=== PATIENT | male | born 1940 | race Caucasian/White ===

== ENCOUNTER → 2016-06-05 | Outpatient (CLI) | payer MEDICARE, OTHER ==
[~2016-06-05] MED LIST: /GLYB5TA; FLEXERIL; GLIP10TA6 PO; GLUC1000; INSULADS INJ; LASI40TA PO; LISI-542 PO; METO25TA74 PO; NEUR100C; OMEP20TA7; PREVASTAIN PO; STAR120T3 PO; TERAZOSIN; VERA180C3; [UNRECOGNIZED DRUG - OTHER]
[2016-06-05 07:14] LABS: MEAN CORPUSCULAR HEMOGLOBIN 31.8 pg (27.0-33.0); MEAN CORPUSCULAR HGB CONC 34.8 g/dl (32.0-36.5); MEAN CORPUSCULAR VOLUME 91.6 fl (80.0-96.0); RED CELL DISTRIBUTION WIDTH 13.7 % (11.5-14.5)
[2016-06-05 07:44] LABS: ALBUMIN 3.8 GM/DL (3.2-5.2); ALBUMIN/GLOBULIN RATIO 1.03 (1.00-1.93); BILIRUBIN,TOTAL 0.4 MG/DL (0.2-1.0); CALCIUM LEVEL 9.1 MG/DL (8.8-10.2); CREATININE FOR GFR 1.3 MG/DL (0.70-1.30); GLOMERULAR FILTRATION RATE 57.4 (>42); POTASSIUM SERUM 4.8 MEQ/L (3.5-5.1); TOTAL PROTEIN 7.5 GM/DL (6.4-8.2)
--- NOTE | 2016-06-05 08:29 | REP ---
CHEST X-RAY: TWO VIEWS. History: Hypertension. Comparison study October 23, 2015. Findings: The lungs are symmetrically aerated and clear. The aorta is calcific. Heart size is normal. Pulmonary vasculature is not increased. There are some degenerative changes in the thoracic spine and in the right shoulder. Impression: No active disease. Signed by Deep Lucero MD 06/05/2016 01:40 P
--- NOTE | 2016-06-05 09:58 | ECGEPIP ---
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
== END ==
LOC: M LAB 06:32
PROVIDERS: ATTEND Family Medicine
DX: Z01.818 Encounter for other preprocedural examination (principal); H26.9 Unspecified cataract; H40.9 Unspecified glaucoma; I10 Essential (primary) hypertension; E11.9 Type 2 diabetes mellitus without complications

== ENCOUNTER → 2016-06-24 | Day surgery (SDC) | payer MEDICARE, OTHER ==
[~2016-06-24] VITALS: Ht 177.8 cm; Wt 117.9 kg
[~2016-06-24] MED LIST changes: +ACETAMINOPHEN 325 MG TAB PO PRN; +ACETYLCHOLINE OPHTH SOLN 1% 2ML As Ordered ONE; +AcetaZOLAMIDE 500 MG ER CAP PO ONE; +BSS with VANC/TOB/EPI for EYE CASES IR ONE; +CEFUROXIME 1MG/0.1ML INTRACAMERAL INJ As Ordered ONE; +CEFUROXIME INJ 1.5 GM VIAL (J0697) XX ONE; +CYCLOPENTOLATE 2% OPHTH SOLN OD ONE; +HEALON DUET (HEALON 10MG/ML 0.55ML & HEALON ENDOCOAT 30MG/ML 0.85ML) As Ordered ONE; +HEALON DUET (HEALON 10MG/ML 0.55ML & HEALON ENDOCOAT 30MG/ML 0.85ML) XX ONE; +KETOROLAC 0.5% OPHTH SOLN OD ONE; +LIDOCAINE 1% SDV 5 ML VIAL As Ordered ONE; +LIDOCAINE 1% SDV 5 ML VIAL XX ONE; +LIDOCAINE 4% INJ 5 ML AMP OU ONE; +MIDAZOLAM INJ 2 MG/2 ML VIAL (J2250) As Ordered ONE; +OFLOXACIN 0.3 % (OCUFLOX) OPTH SOL 5ML OD ONE; +PHENYLEPHRINE 2.5% OPHTH SOL 2ML OD ONE; +POVIDONE-IODINE 5% OPHTH PREP SOL 30ML As Ordered ONE; +PROPARACAINE 0.5% OPHTH SOL 15ML OD PRN; +TRIMETHOBENZAMIDE 300 MG CAP PO PRN; +TROPICAMIDE 1% OPHTH SOLN 2 ML OD ONE; +fentaNYL 100 MCG/2 ML INJECTION (J3010) As Ordered ONE
[2016-06-24 10:00] VITALS: BP 150/69
--- NOTE | 2016-06-24 11:10 | RO ---
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 PROCEDURE: Phacoemulsification with intraocular lens implantation of PCB00 power 15.5 diopters and endocyclophotocoagulation right eye, along with placement of the iStent right eye. SURGEON: Dr. Sary Tabor FURNITURE BUILDER: COMPLICATIONS: None. DESCRIPTION OF PROCEDURE: Procedure in detail: The patient was brought to the operating room and laid in supine position. The right eye was prepped and draped in a sterile fashion for ophthalmic solution, and a lid speculum was placed. A sideport incision was made, and EndoCoat was injected into the anterior chamber. A temporal clear corneal incision was made with a 2.5 mm keratome, followed by capsulorrhexis. Hydrodissection was done, followed by phacoemulsification in a [id number] method. Corticol material was then aspirated using irrigation aspiration cannula, followed by placement of Healon in the capsular bag and placement of the intraocular lens. Healon was then placed in the ciliary sulcus to visualize the ciliary process on the video screen with the help of the EndoProbe, and endocyclophotocoagulation was done for 280 degrees at 0.25 mW. Good results were noted, as by shrinkage of the ciliary processes. The patient was very agitated during this process in spite of adequate anesthesia. Following this, the patient's head was turned away from the surgeon. Microscope was turned towards the surgeon. EndoCoat was injected into the anterior chamber to visualize the infranasal trabecular meshwork; and under high mag with the help of the Goniolens over Healon, the iStent was placed in the infranasal quadrant. The patient continued to move quite aggressively. However, good blood reflux was noted while placing the iStent. Exact positioning was sort of blurred because of the blood reflux. Excess viscoelastic was aspirated. Some heme was aspirated, as well. The anterior chamber was relatively cleared at the end of the aspiration of the Healon. The wound was hydrated. No leaks were noted. Lid speculum removed. The patient returned to the recovery room in stable condition.
== END | disposition home or self-care (01) ==
LOC: M SDC 06:14
PROVIDERS: ATTEND Ophthalmology
DX: H26.9 Unspecified cataract (principal); H40.9 Unspecified glaucoma; I10 Essential (primary) hypertension; I25.2 Old myocardial infarction; E11.9 Type 2 diabetes mellitus without complications; E78.00 Pure hypercholesterolemia, unspecified; K21.9 Gastro-esophageal reflux disease without esophagitis; M17.0 Bilateral primary osteoarthritis of knee; M16.12 Unilateral primary osteoarthritis, left hip; F17.210 Nicotine dependence, cigarettes, uncomplicated; Z79.899 Other long term (current) drug therapy; Z79.4 Long term (current) use of insulin; Z79.84 Long term (current) use of oral hypoglycemic drugs
CPT/HCPCS: 66183; 66711; 66984; C1783; J0697; J2250; J3010; V2632

== ENCOUNTER → 2016-07-22 | Day surgery (SDC) | payer MEDICARE, OTHER ==
[~2016-07-22] VITALS: Ht 177.8 cm; Wt 117.0 kg
[~2016-07-22] MED LIST changes: -ACETYLCHOLINE OPHTH SOLN 1% 2ML As Ordered ONE; -AcetaZOLAMIDE 500 MG ER CAP PO ONE; +BIMA01SOL OS; -CEFUROXIME INJ 1.5 GM VIAL (J0697) XX ONE; -CYCLOPENTOLATE 2% OPHTH SOLN OD ONE; +CYCLOPENTOLATE 2% OPHTH SOLN XX ONE; +D5W/0.2% SODIUM CHLORIDE 250 ML IV SCH; +HumaLOG INSULIN (NovoLOG) PER UNIT As Ordered ONE; +HumaLOG INSULIN (NovoLOG) PER UNIT SC ONE; -KETOROLAC 0.5% OPHTH SOLN OD ONE; +KETOROLAC 0.5% OPHTH SOLN OS ONE; +LIDOCAINE W/EPINEPHRINE 1% 20ML VIAL XX ONE; +METF1000 PO; +METF500T PO; +MOXIFLOXACIN IN BSS 0.25MG/0.25ML INTRACAMERAL INJ (OR EYE ONLY)(J2280) As Ordered ONE; +MOXIFLOXACIN IN BSS 0.25MG/0.25ML INTRACAMERAL INJ (OR EYE ONLY)(J2280) ICAM ONE; -OFLOXACIN 0.3 % (OCUFLOX) OPTH SOL 5ML OD ONE; -PHENYLEPHRINE 2.5% OPHTH SOL 2ML OD ONE; +PHENYLEPHRINE 2.5% OPHTH SOL 2ML XX ONE; -PROPARACAINE 0.5% OPHTH SOL 15ML OD PRN; +PROPARACAINE 0.5% OPHTH SOL 15ML OS PRN; -TERAZOSIN; +TERAZOSIN PO; +TRIAMCINOLONE PRES FR 40 MG/ML 1ML(TRIESENCE)(OR EYE ONLY)(J3300 PER 1MG) IO ONE; -TROPICAMIDE 1% OPHTH SOLN 2 ML OD ONE; +TROPICAMIDE 1% OPHTH SOLN 2 ML XX ONE
[2016-07-22] MEDS: OFLOXACIN 0.3 % (OCUFLOX) OPTH SOL 5ML XX ONE ×2 (11:00→11:15)
[2016-07-22 13:20] VITALS: BP 130/74
--- NOTE | 2016-07-22 13:48 | RO ---
DATE OF PROCEDURE: 07/22/2016 PREPROCEDURE DIAGNOSES: Cataract and glaucoma left eye. POSTPROCEDURE DIAGNOSES: Cataract and glaucoma left eye. SURGEON: Sary Tabor MD CUSTOMER SUPPORT ANALYST: None. COMPLICATIONS: None. PROCEDURE: Phacoemulsification with intraocular lens implantation of PCB 00, power 15 diopter and endocytophotocoagulation left eye and placement of the Glaukos I-Stent, reference number [id number], also in the left eye. DESCRIPTION OF PROCEDURE: The patient was brought to the operating room and laid in supine position. The eye was prepped and draped in the sterile fashion for ophthalmic surgery, and a lid speculum was placed. A sideport incision was made and EndoCoat was injected into the anterior chamber. Temporal clear corneal incision was made with a 2.5 mm keratome and capsulorrhexis was done. Hydrodissection was then done, followed by phacoemulsification in divide and conquer method within the capsular bag. Cortical material was then aspirated using irrigation and aspiration cannula. Healon was then placed into the capsular bag. Intraocular lens was placed in the bag. Healon was then placed in the ciliary sulcus to visualize the ciliary process with the head of the EndoProbe. Endocytophotocoagulation was done about 220 degrees because of excessive facial movement at 0.25 mw with good results noticed by shrinking of the ciliary processes. Healon was then placed into the anterior chamber to visualize the infranasal trabecular meshwork under the microscope under high magnification and with the help of the Gonial lens. The I-Stent was placed in the infranasal quadrant without any complications. Excess viscoelastic was then aspirated. Wound was hydrated. Intracameral antibiotic of moxifloxacin was given. The patient was returned to the recovery room in stable condition.
== END | disposition home or self-care (01) ==
LOC: M SDC 10:28
PROVIDERS: ATTEND Ophthalmology
DX: H26.9 Unspecified cataract (principal); H40.9 Unspecified glaucoma; I10 Essential (primary) hypertension; E11.9 Type 2 diabetes mellitus without complications; E78.5 Hyperlipidemia, unspecified; M19.90 Unspecified osteoarthritis, unspecified site; M54.5 Low back pain; F17.210 Nicotine dependence, cigarettes, uncomplicated; Z79.899 Other long term (current) drug therapy; Z79.84 Long term (current) use of oral hypoglycemic drugs; Z79.4 Long term (current) use of insulin
CPT/HCPCS: 66183; 66711; 66984; C1783; J2250; J2280; J3010; J3300; V2632

== ENCOUNTER → 2017-10-13 | Outpatient (CLI) | payer MEDICARE, OTHER ==
[2017-10-13 16:16] LABS: SOURCE, BODY FLUID GLUCOSE PLEURAL; SOURCE, BODY FLUID TOT PROTEIN PLEURAL; TOTAL PROTEIN, BODY FLUID 5.4 G/DL (NOT ESTABLISHED)
== END ==
LOC: M RADPRO 12:57
DX: J90 Pleural effusion, not elsewhere classified (principal)
CPT/HCPCS: 32555

== ENCOUNTER → 2020-08-13 | Outpatient (REF) | payer MEDICARE, OTHER ==
[~2020-08-13] MED LIST changes: -/GLYB5TA; -ACETAMINOPHEN 325 MG TAB PO PRN; -BSS with VANC/TOB/EPI for EYE CASES IR ONE; -CEFUROXIME 1MG/0.1ML INTRACAMERAL INJ As Ordered ONE; -CYCLOPENTOLATE 2% OPHTH SOLN XX ONE; -D5W/0.2% SODIUM CHLORIDE 250 ML IV SCH; +GLYB1TAB29; -HEALON DUET (HEALON 10MG/ML 0.55ML & HEALON ENDOCOAT 30MG/ML 0.85ML) As Ordered ONE; -HEALON DUET (HEALON 10MG/ML 0.55ML & HEALON ENDOCOAT 30MG/ML 0.85ML) XX ONE; -HumaLOG INSULIN (NovoLOG) PER UNIT As Ordered ONE; -HumaLOG INSULIN (NovoLOG) PER UNIT SC ONE; -KETOROLAC 0.5% OPHTH SOLN OS ONE; -LASI40TA PO; +LASI40TA9 PO; -LIDOCAINE 1% SDV 5 ML VIAL As Ordered ONE; -LIDOCAINE 1% SDV 5 ML VIAL XX ONE; -LIDOCAINE 4% INJ 5 ML AMP OU ONE; -LIDOCAINE W/EPINEPHRINE 1% 20ML VIAL XX ONE; -LISI-542 PO; +LISI-898 PO; -METF1000 PO; +METF10004 PO; -METF500T PO; +METF500T13 PO; +METO1TAB32 PO; -METO25TA74 PO; -MIDAZOLAM INJ 2 MG/2 ML VIAL (J2250) As Ordered ONE; -MOXIFLOXACIN IN BSS 0.25MG/0.25ML INTRACAMERAL INJ (OR EYE ONLY)(J2280) As Ordered ONE; -MOXIFLOXACIN IN BSS 0.25MG/0.25ML INTRACAMERAL INJ (OR EYE ONLY)(J2280) ICAM ONE; -PHENYLEPHRINE 2.5% OPHTH SOL 2ML XX ONE; -POVIDONE-IODINE 5% OPHTH PREP SOL 30ML As Ordered ONE; -PROPARACAINE 0.5% OPHTH SOL 15ML OS PRN; -TRIAMCINOLONE PRES FR 40 MG/ML 1ML(TRIESENCE)(OR EYE ONLY)(J3300 PER 1MG) IO ONE; -TRIMETHOBENZAMIDE 300 MG CAP PO PRN; -TROPICAMIDE 1% OPHTH SOLN 2 ML XX ONE; -fentaNYL 100 MCG/2 ML INJECTION (J3010) As Ordered ONE
== END ==
LOC: M LAB REF 12:17
PROVIDERS: ATTEND Surgery
DX: M86.172 Other acute osteomyelitis, left ankle and foot (principal); E11.621 Type 2 diabetes mellitus with foot ulcer; L97.402 Non-pressure chronic ulcer of unspecified heel and midfoot with fat layer exposed; L97.504 Non-pressure chronic ulcer of other part of unspecified foot with necrosis of bone
CPT/HCPCS: 11042; 11044; 87070; 87077; 87186; 88304; 88311; G0463

== ENCOUNTER → 2020-10-09 | Outpatient (REF) | payer MEDICARE, OTHER | LOC: M LAB REF 16:14 | PROVIDERS: ATTEND Physician Assistant | DX: L97.504 Non-pressure chronic ulcer of other part of unspecified foot with necrosis of bone (principal) ==

== ENCOUNTER → 2021-06-17 | Outpatient (REF) | payer MEDICARE, OTHER ==
[~2021-06-17] MED LIST changes: -LISI-898 PO; +LISI5TAB11 PO
== END ==
LOC: M LAB REF 15:46
PROVIDERS: ATTEND Surgery
DX: L97.524 Non-pressure chronic ulcer of other part of left foot with necrosis of bone (principal)

== ENCOUNTER → 2023-07-15 | Outpatient (REF) | payer MEDICARE, OTHER | LOC: M SFHCWOUN 16:35 | PROVIDERS: ATTEND Surgery | DX: L97.812 Non-pressure chronic ulcer of other part of right lower leg with fat layer exposed (principal) ==

== ENCOUNTER 2023-11-18 15:21 | Emergency (ER) | payer MEDICARE, OTHER ==
[~2023-11-18] VITALS: Ht 177.8 cm; Wt 121.1 kg
[2023-11-18 16:11] LABS: BASO % 0.3 % (0.0-1.0); EOS # 0.6 10^3/uL (0.0-0.5); EOS % 7.6 % (0.0-3.0); HEMATOCRIT 27.7 % (42.0-52.0); HEMOGLOBIN 8.2 g/dl (13.5-17.5); LYMPH # 1.5 10^3/uL (1.5-5.0); LYMPH % 20.4 % (24.0-44.0); MEAN CORPUSCULAR HEMOGLOBIN 29.3 pg (27.0-33.0); MEAN CORPUSCULAR HGB CONC 29.6 g/dl (32.0-36.5); MEAN CORPUSCULAR VOLUME 98.9 fl (80.0-96.0); MONO # 0.5 10^3/uL (0.0-0.8); MONO % 7.2 % (2.0-8.0); NEUTROPHILS # 4.8 10^3/uL (1.5-8.5); NEUTROPHILS % 64.2 % (36.0-66.0); PLATELET COUNT, AUTOMATED 207 10^3/uL (150-450); WHITE BLOOD COUNT 7.4 10^3/uL (4.0-10.0)
[2023-11-18 16:17] LABS: ALBUMIN 2.4 G/DL (3.2-5.2); ALKALINE PHOSPHATASE 133 U/L (46-116); ALT/SGPT 22 U/L (7.0-40); AST/SGOT 12 U/L (<34); BILIRUBIN,DIRECT < 0.1 MG/DL (<0.4); BILIRUBIN,TOTAL 0.2 MG/DL (0.3-1.2); BLOOD UREA NITROGEN 65 MG/DL (9-23); CALCIUM LEVEL 10.7 MG/DL (8.3-10.6); CARBON DIOXIDE LEVEL 32 MMOL/L (20-31); CHLORIDE LEVEL 106 MMOL/L (98-107); CREATININE FOR GFR 2.11 MG/DL (0.70-1.30); GLOMERULAR FILTRATION RATE 32.2 (>35); GLUCOSE, FASTING 201 MG/DL (74-106); POTASSIUM SERUM 3.8 MMOL/L (3.5-5.1); SODIUM LEVEL 142 MMOL/L (136-145); TOTAL PROTEIN 6.6 G/DL (5.7-8.2)
[2023-11-18 16:19] LABS: THYROID STIMULATING HORMONE 1.824 uIU/ML (0.55-4.78); THYROXINE (T4) 4.7 UG/DL (4.5-10.9)
[2023-11-18] MEDS ORDERED: ELIQ5TAB PO (17:04)
[2023-11-18] MEDS ORDERED: ASCO500T PO (17:04)
[2023-11-18] MEDS ORDERED: BISA10SU27 PR (17:04)
[2023-11-18] MEDS ORDERED: CALCD50TA PO (17:04)
[2023-11-18] MEDS ORDERED: CARB15DR33 OU (17:04)
[2023-11-18] MEDS ORDERED: ATOR40TA75 PO (17:04)
[2023-11-18] MEDS ORDERED: ACET1TAB55 PO (17:04)
[2023-11-18] MEDS ORDERED: FAMO10TA50 PO (17:04)
[2023-11-18] MEDS ORDERED: AMOX500T2 PO (17:04)
[2023-11-18] MEDS ORDERED: SANT250O8 TOP (17:04)
[2023-11-18] MEDS ORDERED: ASPI81CH33 PO (17:04)
[2023-11-18] MEDS ORDERED: VITA200038 PO (17:04)
[2023-11-18] MEDS ORDERED: EPOG1000 SQ (17:04)
[2023-11-18] MEDS ORDERED: MULT-90 PO (17:19)
[2023-11-18] MEDS ORDERED: LANTINJ4 SC ×2 (17:19)
[2023-11-18] MEDS ORDERED: MILKSUS3 PO (17:19)
[2023-11-18] MEDS ORDERED: FURO40TA2 PO (17:19)
[2023-11-18] MEDS ORDERED: METO25TA4 PO (17:19)
[2023-11-18] MEDS ORDERED: MYRB25TA PO (17:19)
[2023-11-18] MEDS ORDERED: INSU100V3 SQ (17:19)
[2023-11-18] MEDS ORDERED: XALA0.007 OU (17:19)
[2023-11-18] MEDS ORDERED: MUCI600T31 PO (17:19)
[2023-11-18] MEDS ORDERED: CULT10CA4 PO (17:19)
[2023-11-18] MEDS ORDERED: HOME MED LIST COMPLETE! XX SCH (17:25)
[2023-11-18] MEDS: FUROSEMIDE 40MG/4ML VIAL IV ONE (17:41)
[2023-11-18 22:00] VITALS: BP 154/71; TEMP 98; O2SAT 92
== END 2023-11-18 19:05 | disposition home or self-care (01) ==
LOC: EDBD 15:21 → M ED 15:21
DX: I50.22 Chronic systolic (congestive) heart failure (principal); D64.9 Anemia, unspecified; N18.9 Chronic kidney disease, unspecified; I11.0 Hypertensive heart disease with heart failure; J44.9 Chronic obstructive pulmonary disease, unspecified; E78.5 Hyperlipidemia, unspecified; I44.0 Atrioventricular block, first degree; Z79.1 Long term (current) use of non-steroidal anti-inflammatories (NSAID); Z79.2 Long term (current) use of antibiotics; Z79.4 Long term (current) use of insulin; Z79.810 Long term (current) use of selective estrogen receptor modulators (SERMs); Z79.899 Other long term (current) drug therapy
CPT/HCPCS: 71045; 80048; 80076; 83605; 83880; 84436; 84443; 85025; 87040; 87486; 87581; 87633; 87798; 93005; 93041; 94760; 96374; 99285; J1940